=== PATIENT | male | born 1980 | race Caucasian/White ===

== ENCOUNTER 2017-02-01 13:32 | Emergency (ER) | payer BC, OTHER, SELFPAY ==
[2017-02-01] MEDS ORDERED: Sodium Chloride 0.9% 1000 ML 1,000 ML IV STA (14:25)
[2017-02-01] MEDS ORDERED: Unasyn 3GM / NaCl 100ML 3 GM/100 ML IVPB IV STA (14:27)
[2017-02-01] MEDS ORDERED: Zofran 4 MG/2 ML VIAL IV ONE (14:28)
[2017-02-01] MEDS ORDERED: Hydromorphone 1 mg/ml Ampule IV ONE (14:28)
[2017-02-01] MEDS ORDERED: TORAdol 30 mg Injection IV ONE (14:28)
[2017-02-01] MEDS ORDERED: Unasyn 3GM / NaCl 100ML 3 GM/100 ML IVPB ONE (14:33)
[2017-02-01] MEDS ORDERED: Sodium Chloride 0.9% 1000 ML 1,000 ML ONE (14:33)
[2017-02-01] MEDS ORDERED: TORAdol 30 mg Injection ONE (14:33)
[2017-02-01] MEDS ORDERED: Zofran 4 MG/2 ML VIAL ONE (14:33)
[2017-02-01] MEDS ORDERED: Hydromorphone 1 mg/ml Ampule ONE (14:33)
--- NOTE | 2017-02-01 14:35 | ERPHSYRPT ---
- History of Present Illness Time Seen by Provider: 02/01/17 14:10 Source: patient Exam Limitations: clinical condition Patient Subjective Stated Complaint: pt states he woke up on 02/10/17 witha swollen left jaw and toothache. Triage Nursing Assessment: pt pink, warm, dry. pt afebrile. edema noted to left jaw. Physician History: PATIENT WITH A HISTORY OF WIDESPREAD DENTAL CARIES, AWAKENED WITH LEFT JAW SWELLING AND DENTAL PAIN THIS AM. DENIES ASSOCIATED FEVER, DIFFICULTY BREATHING OR SWALLOWING. Timing/Duration: abrupt onset Severity: severe ENT Location: dental Prearrival Treatment: no prearrival treatment Modifying Factors: Improves With: nothing Associated Symptoms: jaw pain Allergies/Adverse Reactions: No Known Drug Allergies Allergy (Unverified 02/01/17 13:59) Home Medications: No Home Meds [No Home Meds] 1 ea [facility] 11/06/15 [History] Hx Tetanus, Diphtheria Vaccination/Date Given: Yes (up to date) Hx Influenza Vaccination/Date Given: No Hx Pneumococcal Vaccination/Date Given: No Immunizations Up to Date: Yes - Review of Systems Constitutional: No Symptoms Eyes: No Symptoms Ears, Nose, & Throat: Other (SEVERE TOOTHACHE, WITH JAW SWELLING.) Respiratory: No Symptoms Cardiac: No Symptoms - Past Medical History Pertinent Past Medical History: No - Past Surgical History Past Surgical History: No - Social History Smoking Status: Current every day smoker How long have you smoked: 20 Exposure to second hand smoke: Yes Alcohol Use: Socially Drug Use: none Patient Lives Alone: No Significant Family History: no pertinent family hx - Nursing Vital Signs Nursing Vital Signs: Initial Vital Signs Temperature 97.9 F 02/01/17 13:55 Pulse Rate 68 02/01/17 13:55 Respiratory Rate 20 02/01/17 13:55 Blood Pressure 146/86 02/01/17 13:55 O2 Sat by Pulse Oximetry 99 02/01/17 13:55 Pain Scale Pain Intensity 2 - Physical Exam General Appearance: no apparent distress, alert Eye Exam: bilateral eye: normal inspection, PERRL Ear Exam: bilateral ear: auricle normal, canal normal Throat Exam: dental tenderness (WIDESPREAD DENTAL CARIES, LEFT UPPER 2ND, 3RD MOLAR CARIES WITH GINGIVAL SWELLING AND TENDERNESS) Neck Exam: normal inspection Cardiovascular/Respiratory Exam: chest non-tender, normal breath sounds, regular rate/rhythm SpO2: 99 Oxygen Delivery: Room Air Ordered Tests: Active Orders 24 hr Category Date Time Status CBC W DIFF Stat Lab 02/01/17 14:37 Completed Medication Summary Discontinued Medications Generic Name Dose Route Start Last Admin Trade Name Grisel PRN Reason Stop Dose Admin Hydromorphone HCl 1 mg 02/01/17 14:28 02/01/17 14:38 Hydromorphone 1 Mg/Ml Ampule IV 02/01/17 14:29 1 mg STAT ONE Administration Hydromorphone HCl Confirm 02/01/17 14:33 Hydromorphone 1 Mg/Ml Ampule Administered 02/01/17 14:34 Dose 1 mg .ROUTE .STK-MED ONE Sodium Chloride 1,000 mls @ 999 mls/hr 02/01/17 14:25 02/01/17 14:40 Sodium Chloride 0.9% 1000 Ml IV 02/01/17 15:25 999 mls/hr .Q1H1M STA Administration Ampicillin Sodium/Sulbactam Sodium 3 gm in 100 mls @ 200 mls/hr 02/01/17 14: 27 02/01/17 14:43 Unasyn 3gm / Nacl 100ml IV 02/01/17 14:56 200 mls/hr STAT STA Administration Sodium Chloride Confirm 02/01/17 14:33 Sodium Chloride 0.9% 1000 Ml Administered 02/01/17 14:34 Dose 1,000 mls @ ud .ROUTE .STK-MED ONE Ampicillin Sodium/Sulbactam Sodium Confirm 02/01/17 14:33 Unasyn 3gm / Nacl 100ml Administered 02/01/17 14:34 Dose 3 gm in 100 mls @ ud .ROUTE .STK-MED ONE Ketorolac Tromethamine 30 mg 02/01/17 14:28 02/01/17 14:41 Toradol 30 Mg Injection IV 02/01/17 14:29 30 mg STAT ONE Administration Ketorolac Tromethamine Confirm 02/01/17 14:33 Toradol 30 Mg Injection Administered 02/01/17 14:34 Dose 30 mg .ROUTE .STK-MED ONE Ondansetron HCl 4 mg 02/01/17 14:28 02/01/17 14:39 Zofran 4 Mg/2 Ml Vial IV 02/01/17 14:29 4 mg STAT ONE Administration Ondansetron HCl Confirm 02/01/17 14:33 Zofran 4 Mg/2 Ml Vial Administered 02/01/17 14:34 Dose 4 mg .ROUTE .STK-MED ONE Lab/Rad Data: Laboratory Result Diagrams 02/01/17 14:37 Laboratory Results 02/01/17 Range/Units 14:37 WBC 9.8 (4.0-10.5) K/mm3 RBC 5.12 (4.1-5.6) M/mm3 Hgb 16.0 (12.5-18.0) gm/dl Hct 47.3 (42-50) % MCV 92.4 (78-100) fl MCH 31.3 (26-32) pg MCHC 33.8 (32-36) g/dl RDW 13.2 (11.5-14.0) % Plt Count 158 (150-450) K/mm3 MPV 10.5 H (6-9.5) fl Gran % 71.5 H (36.0-66.0) % Lymphocytes % 15.5 L (24.0-44.0) % Monocytes % 11.8 (0.0-12.0) % Eosinophils % 1.1 (0.00-5.0) % Basophils % 0.1 (0.0-0.4) % Basophils # 0.01 (0-0.4) - Progress Progress: improved Progress Note: 02/01/17 14:36 ADMINISTERED IV NORMAL SALINE 1 LITER/HR, TORADOL 30MG, ZOFRAN 4MG, DILAUDID 1MG IV, AND UNASYN 3GM IVPB Counseled pt/family regarding: lab results, diagnosis - Departure Time of Disposition: 16:00 Departure Disposition: Home Clinical Impression: LEFT UPPER MOLAR ABSCESS Condition: Stable Critical Care Time: No Referrals: DOCTOR,NO FAMILY [Primary Care Provider] - Additional Instructions: FOLLOWUP WITH A DENTIST TOMORROW. MOTRIN 600MG EVERY 6 HOUR NEEDED FOR PAIN. NORCO 10/325 EVERY 4 HOURS FOR PAIN. ANTIBIOTIC AUGMENTIN 875MG TWICE DAILY FOR 10 DAYS. CONSULT YOUR PRIMARY CARE PROVIDER FOR EVALUATION IN 1 WEEK. Prescriptions: Hydrocodone/APAP 10/325 mg [[place] 10/325 MG Tablet] 1 tab PO Q4H PRN PRN # 15 tablet MDD 4 PRN Reason: Pain Hydrocodone/APAP 10/325 mg [[place] 10/325 MG Tablet] 1 tab PO Q4H PRN PRN # 15 tablet MDD 6 PRN Reason: Pain Ibuprofen 600 mg PO Q6HPRN PRN #20 tablet PRN Reason: Pain Amox Tr/Potass Clav. 875 mg [Augmentin 875-125 Tablet] 875 mg PO STAT #20 tablet
[2017-02-01 14:39] LABS: BASOPHIL % 0.1 % (0.0-0.4); Eosinophil % 1.1 % (0.00-5.0); Granulocytes % 71.5 % (36.0-66.0); Lymphocytes % 15.5 % (24.0-44.0); Mean Cell Volume 92.4 fl (78-100); Mean Corpuscular Hemoglobin 31.3 pg (26-32); Mean Platelet Volume 10.5 fl (6-9.5); Monocytes % 11.8 % (0.0-12.0); Platelet Count 158 K/mm3 (150-450); Red Blood Count 5.12 M/mm3 (4.1-5.6); Red Cell Distribution Width 13.2 % (11.5-14.0); White Blood Count 9.8 K/mm3 (4.0-10.5)
[2017-02-01 15:50] VITALS: O2SAT 99
[2017-02-01 16:10] VITALS: BP 132/64; PULSE 80
== END 2017-02-01 16:08 | disposition home or self-care (01) ==
LOC: ED 13:32
DX: K04.7 Periapical abscess without sinus (principal)
CPT/HCPCS: 36415; 85025; 96360; 96365; 96374; 96375; 99284; J0295; J1170; J1885; J2405